=== PATIENT | male | born 1975 | race Caucasian/White ===

== ENCOUNTER 2018-06-04 09:24 | Emergency (ER) | payer BC ==
--- NOTE | 2018-06-04 10:18 | ER Document Report ---
ED Medical Screen (RME) - General Chief Complaint: Fever Stated Complaint: SHAKING, FEVER, PAINFUL URINATION Time Seen by Provider: 06/04/18 10:11 Mode of Arrival: Ambulatory Information source: Patient Notes: This is a 42-year-old man with a history of Soumya's granulomatosis (RITUXIMAB) , hypertension, hypothyroidism who presents to the emergency room with fevers, rigors since last night. Patient has taken Tylenol. He denies any significant headache, neck pain, chest pain or abdominal pain. He has had a cough productive of the small sputum (no blood) but this is not out of the ordinary for him. He thinks he may have had some dysuria. TRAVEL OUTSIDE OF THE [place] IN LAST 30 DAYS: No - Related Data Allergies/Adverse Reactions: No Known Allergies Allergy (Verified 06/04/18 09:24) Past Medical History Renal/ Medical History: Denies: Hx Peritoneal Dialysis Physical Exam - Vital signs Vitals: Temp Pulse Resp BP Pulse Ox 98.3 F 109 H 22 H 157/90 H 96 06/04/18 09:27 06/04/18 09:27 06/04/18 09:27 06/04/18 09:27 06/04/18 09:27 Course - Vital Signs Vital signs: Temp Pulse Resp BP Pulse Ox 98.3 F 109 H 22 H 157/90 H 96 06/04/18 09:27 06/04/18 09:27 06/04/18 09:27 06/04/18 09:27 06/04/18 09:27 Doctor's Discharge - Discharge Referrals: GISEL PEACE MD [Primary Care Provider] - Follow up as needed
--- NOTE | 2018-06-04 11:01 | RADIOLOGY REPORT (SQ) ---
EXAM DESCRIPTION: CHEST 2 VIEWS COMPLETED DATE/TIME: 06/04/2018 10:46 am REASON FOR STUDY: cough, fever COMPARISON: None. EXAM PARAMETERS: NUMBER OF VIEWS: two views TECHNIQUE: Digital Frontal and Lateral radiographic views of the chest acquired. RADIATION DOSE: NA LIMITATIONS: none FINDINGS: LUNGS AND PLEURA: No opacities, masses or pneumothorax. No pleural effusion. MEDIASTINUM AND HILAR STRUCTURES: No masses or contour abnormalities. HEART AND VASCULAR STRUCTURES: Heart normal size. No evidence for failure. BONES: No acute findings. HARDWARE: None in the chest. OTHER: No other significant finding. IMPRESSION: NO ACUTE RADIOGRAPHIC FINDING IN THE CHEST. TECHNICAL DOCUMENTATION: JOB ID: [id number]- All Rights Reserved Reading location - IP/workstation name: [email or web address]
[2018-06-04 11:09] LABS: HEMATOCRIT 41.6 % (37.9-51.0); MEAN CORPUSCULAR HEMOGLOBIN 34.2 pg (27.0-33.4); MEAN CORPUSCULAR HGB CONC 33.7 g/dL (32.0-36.0); MEAN CORPUSCULAR VOLUME 101 fl (80-97); PLATELET COUNT 183 10^3/uL (150-450); RED BLOOD COUNT 4.11 10^6/uL (4.35-5.55); RED CELL DISTRIBUTION WIDTH 12.7 % (11.5-14.0); WHITE BLOOD COUNT 13.1 10^3/uL (4.0-10.5)
[2018-06-04 11:22] LABS: ABSOLUTE LYMPHOCYTES# (MANUAL) 0.7 10^3/uL (0.5-4.7); ABSOLUTE MONOCYTES # (MANUAL) 0.1 10^3/uL (0.1-1.4); ABSOLUTE NEUTROPHILS# (MANUAL) 11.9 10^3/uL (1.7-8.2); BAND NEUTROPHILS % (MANUAL) 3 % (3-5); BASOPHILS % (MANUAL) 0 % (0-2); EOSINOPHILS % (MANUAL) 3 % (0-6); LYMPHOCYTES % (MANUAL) 4 % (13-45); MONOCYTES % (MANUAL) 1 % (3-13); PLATELET CLUMPS PRESENT; POLYCHROMASIA SLIGHT; SEGMENTED NEUTROPHILS % (MAN) 88 % (42-78); TOTAL CELLS COUNTED 100
[2018-06-04 11:37] LABS: ALANINE AMINOTRANSFERASE 27 U/L (21-72); ALBUMIN 3.9 g/dL (3.5-5.0); ALKALINE PHOSPHATASE 79 U/L (38-126); ANION GAP 8 (5-19); ASPARTATE AMINO TRANSFERASE 18 U/L (17-59); BILIRUBIN,DIRECT 0.5 mg/dL (0.0-0.4); BILIRUBIN,TOTAL 1.6 mg/dL (0.2-1.3); BLOOD UREA NITROGEN 16 mg/dL (7-20); CALCIUM 8.8 mg/dL (8.4-10.2); CARBON DIOXIDE 25 mmol/L (22-30); CHLORIDE 105 mmol/L (98-107); GLUCOSE 111 mg/dL (75-110); SODIUM 137.5 mmol/L (137-145); TOTAL PROTEIN 6.5 g/dL (6.3-8.2)
[2018-06-04] MEDS ORDERED: CEFTRIAXONE 1 GM/D5W RTU 1 GM/50 ML RTUPB IV ONE (11:48)
[2018-06-04 11:54] LABS: APPEARANCE,URINE SLIGHTLY-CLOUDY; BILIRUBIN,URINE NEGATIVE (NEGATIVE); COLOR,URINE YELLOW; GLUCOSE, URINE NEGATIVE (NEGATIVE); KETONES,URINE NEGATIVE (NEGATIVE); LEUKOCYTE ESTERASE,URINE LARGE (NEGATIVE); NITRITE,URINE POSITIVE (NEGATIVE); PROTEIN,URINE 100 mg/dL (NEGATIVE); URINE SPECIFIC GRAVITY 1.006; UROBILINOGEN,URINE NEGATIVE mg/dL (<2.0)
[2018-06-04] MEDS ORDERED: LEVOFLOXACIN 500 MG TABLET PO ONE (12:28)
[2018-06-04] MEDS ORDERED: CEFTRIAXONE INJ 1000 MG VIAL ONE (12:46)
[2018-06-04] MEDS: NORMAL SALINE 1000 ML 1,000 ML IV PRN ×2 (13:02→14:12)
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
[2018-06-04 15:26] VITALS: BP 150/89
== END 2018-06-04 15:24 | disposition home or self-care (01) ==
LOC: ER 09:24
DX: N30.00 Acute cystitis without hematuria (principal); R50.9 Fever, unspecified; R53.83 Other fatigue
CPT/HCPCS: 99284; 96361; 96365; 36415; 87040; 87086; 84443; 85025; 87088; 80053; 81001; 87186; 83605; 71046; J0696